=== PATIENT | female | born 1940 | race Caucasian/White ===

== ENCOUNTER 2020-10-03 19:15 | Inpatient (IN) | payer OTHER ==
[~2020-10-03] VITALS: Ht 170.2 cm; Wt 55.0 kg
[~2020-10-03 19:15] MED LIST: COREG 12.5MG12.5 MG PO; FLOMAX 0.4 MG0.4 MG PO; LOTENSIN20 MG PO; MUPIROCIN22 GM EXT; NORCO 5-325 TA1 EACH PO; TIMOPTIC 0.5% OP5 ML OU; TRAVATAN Z5 ML OP; [UNRECOGNIZED DRUG - REMARK] TP
[2020-10-03 21:08] LABS: HEMOGLOBIN 7.4 gm/dl (12.3-15.3); RED BLOOD COUNT 2.33 M/UL (4.00-5.10); WHITE BLOOD COUNT 4.1 K/UL (4.5-11.0)
[2020-10-03 22:10] LABS: HEMOGLOBIN 8.3 gm/dl (12.3-15.3); RED BLOOD COUNT 2.49 M/UL (4.00-5.10)
[2020-10-03 22:14] LABS: WHITE BLOOD COUNT 5.9 K/UL (4.5-11.0)
[2020-10-04 04:39] LABS: HEMOGLOBIN 8.5 gm/dl (12.3-15.3); RED BLOOD COUNT 2.55 M/UL (4.00-5.10)
[2020-10-04 04:40] LABS: WHITE BLOOD COUNT 13.1 K/UL (4.5-11.0)
--- NOTE | 2020-10-04 19:58 | NUR ---
1802 I CALLED AND SPOKE WITH GEREMIAS KADI AND INFORMED HIM THAT AFTER HE LEFT THE PT HIS MOTHER [employer] STEADILY WAS DROPPING AND WE HAD TO PLACE HER ON BIPAP AT 100% WHICH IS THE MAX OXYGEN THAT THE MACHINE CAN DELIVER AND THE PT IS STILL CURRENTLY ON HIGH DOSES OF MEDICINE TO KEEP HER BP UP. THE PULMONOLIGIST IS AT BEDSIDE WHEN THE PT WAS PLACED ON BIPAP AND SHE HAD A CHANGE IN HER EKG THAT WAS SHOWN TO DR. MILLS AND A CONSULT HAD BEEN PLACED FOR CARDIOLOGY TO SEE HER. THE SON SAID THAT HE WOULD CALL BACK IN A LITTLE BIT TO CHECK ON HER AND THANKED ME FOR LETTING ME KNOW
[2020-10-05 05:43] LABS: HEMOGLOBIN 6.3 gm/dl (12.3-15.3); WHITE BLOOD COUNT 26.2 K/UL (4.5-11.0)
[2020-10-05 19:05] LABS: HEMOGLOBIN 8.2 gm/dl (12.3-15.3)
[2020-10-06 05:22] LABS: HEMOGLOBIN 7.3 gm/dl (12.3-15.3)
[2020-10-06 05:23] LABS: RED BLOOD COUNT 2.3 M/UL (4.00-5.10); WHITE BLOOD COUNT 12.2 K/UL (4.5-11.0)
[2020-10-07 04:54] LABS: HEMOGLOBIN 8.7 gm/dl (12.3-15.3); WHITE BLOOD COUNT 11.5 K/UL (4.5-11.0)
[2020-10-07 04:55] LABS: RED BLOOD COUNT 2.81 M/UL (4.00-5.10)
[2020-10-07 14:14] LABS: HGB A 97.7 % (96.4-98.8); HGB A2 2.3 % (1.8-3.2); HGB SOLUBILITY Negative (Negative)
[2020-10-08 03:53] LABS: HEMOGLOBIN 8.2 gm/dl (12.3-15.3); RED BLOOD COUNT 2.63 M/UL (4.00-5.10); WHITE BLOOD COUNT 8.8 K/UL (4.5-11.0)
[2020-10-09 03:32] LABS: HEMOGLOBIN 8.2 gm/dl (12.3-15.3); RED BLOOD COUNT 2.61 M/UL (4.00-5.10)
--- NOTE | 2020-10-10 05:42 | NUR ---
0529-PATIENT DECLARED BY ME AND PIERRE CHURCHILL. PATIENT HAD NO HEART BEAT OR BREATH SOUNDS. FAMILY NOTIFIED, DR CRAWFORD NOTIFIED. SAMANTHA NOTIFIED.
== END 2020-10-10 05:29 | disposition expired | DRG 698 ==
LOC: ER1 19:15 → CCU 23:04 → CDU 23:04 → CCU 10-04 06:03 → MED SURG 4 10-09 15:20
PROVIDERS: Emergency Medicine; Internal Medicine; Internal Medicine Nephrology; ADMIT Internal Medicine
PROC: 3E033XZ Introduction of Vasopressor into Peripheral Vein, Percutaneous Approach (ICD-10-PCS; principal; 2020-10-03)
PROC: 02HV33Z Insertion of Infusion Device into Superior Vena Cava, Percutaneous Approach (ICD-10-PCS; 2020-10-03)
PROC: B24BZZZ Ultrasonography of Heart with Aorta (ICD-10-PCS; 2020-10-05)
DX: T83.511A Infection and inflammatory reaction due to indwelling urethral catheter, initial encounter (principal); A41.9 Sepsis, unspecified organism; K72.00 Acute and subacute hepatic failure without coma; J96.01 Acute respiratory failure with hypoxia; J18.9 Pneumonia, unspecified organism; R65.21 Severe sepsis with septic shock; E43 Unspecified severe protein-calorie malnutrition; G93.41 Metabolic encephalopathy; N17.0 Acute kidney failure with tubular necrosis; J69.0 Pneumonitis due to inhalation of food and vomit; K91.83 Postprocedural hepatorenal syndrome; Z68.1 Body mass index [BMI] 19.9 or less, adult; D61.818 Other pancytopenia; N17.9 Acute kidney failure, unspecified; E87.2 Acidosis; Z20.822 Contact with and (suspected) exposure to COVID-19; K74.60 Unspecified cirrhosis of liver; E87.70 Fluid overload, unspecified; E88.09 Other disorders of plasma-protein metabolism, not elsewhere classified; R23.3 Spontaneous ecchymoses; T14.8XXA Other injury of unspecified body region, initial encounter; I10 Essential (primary) hypertension; I95.9 Hypotension, unspecified; T68.XXXA Hypothermia, initial encounter; D69.6 Thrombocytopenia, unspecified; E87.6 Hypokalemia; Z66 Do not resuscitate; L89.159 Pressure ulcer of sacral region, unspecified stage; L89.329 Pressure ulcer of left buttock, unspecified stage; I11.0 Hypertensive heart disease with heart failure; I50.9 Heart failure, unspecified; Z88.0 Allergy status to penicillin; Z72.89 Other problems related to lifestyle
CPT/HCPCS: ECHO; 36415; 36430; 36556; 36600; 51702; 70450; 71045; 71250; 76705; 80053; 80202; 81001; 82140; 82803; 82962; 83021; 83605; 83735; 83880; 84100; 84132; 84133; 84300; 85007; 85014; 85018; 85025; 85027; 85379; 85384; 85610; 85652; 85730; 86140; 86850; 86900; 86901; 86920; 87040; 87070; 87086; 87205; 89050; 90471; 93005; 93306; 94660; 94760; 96365; 96366; 96367; 96368; 96375; 99285; A6212; C9113; J1450; J1720; J1940; J2185; J2270; J2405; J3370; J3411; J3475; J3480; J7030; J7040; J7050; J7070; P9016; P9035; P9047; U0002